=== PATIENT | female | born 1950 | race Caucasian/White ===

== ENCOUNTER 2018-09-29 06:03 | Inpatient (IN) ==
--- NOTE | 2018-09-26 16:03 | MH ---
cc: Bon Castro MD, Rohit K MD Robbins, Rena MD DATE OF ADMISSION: 09/29/2018 ADMITTING DIAGNOSIS: Lumbar spinal stenosis. HISTORY OF PRESENT ILLNESS: This is a 68-year-old female who presented to our office with complaints of low back pain and leg pain which has progressively gotten worse over the last 3-4 years. She also complains of pain radiating into the right buttocks, lateral thigh, and anterior wing. She went on a trip to see her son and grandson in [place] and this exacerbated her pain. She states her pain then also started to go into the left buttocks, lateral thigh, and anterior wing into the top of the left foot. She was found to have multilevel degenerative disk disease at L2-L3, L3-L4, and L4-L5 with significant spinal stenosis at L3-L4 and L4-L5 with disk protrusion and facet hypertrophy as well as left-sided L4-L5 foraminal stenosis. She has a grade 1 L3-L4 and L4-L5 spondylolisthesis she has currently. She states her pain is most severe in the left leg. She states that the right leg is not so bothersome, but she may get occasional pain there. She has been to pain management, and states that when she gets lumbar epidural injections her pain resolves. She states that her last shot was in February, and her pain specialist told her he did not want to do any more injections until she saw neurosurgery. She states that she cannot stand for more than 5 minutes or walk 150 feet. She states that her left leg goes numb in the anterior aspect to the toes. She has undergone several bouts of physical therapy without any lasting relief. PAST MEDICAL HISTORY: Significant for hyperlipidemia, history of breast cancer. She is status post bilateral mastectomy in 2000. She has also undergone hysterectomy in 2012, and she has had two previous C-sections in 1975 and 1978. MEDICATIONS: 1. Morphine 15 mg immediate release. 2. Simvastatin 40 mg. 3. Trazodone 50 mg. 4. Zaleplon 10 mg. ALLERGIES TO MEDICATIONS: SHE IS ALLERGIC TO SULFA. SOCIAL HISTORY: She drinks alcohol daily. She has 2 children. She does not smoke, has not smoked in the past. REVIEW OF SYSTEMS: CONSTITUTIONAL: She denies any fever or chills. EARS, NOSE AND THROAT: No pharyngitis exudate or bloody drainage from her nose. CARDIOVASCULAR: She denies any chest pain or palpitations. RESPIRATORY: No cough or shortness of breath. GENITOURINARY: No dysuria or hematuria. MUSCULOSKELETAL: Positive for low back pain and leg pain. SKIN: No rashes or pruritus. NEUROLOGIC: No difficulty with speech or memory. GASTROINTESTINAL: No nausea, vomiting, abdominal pain. PSYCHIATRIC: No anxiety or depression symptoms. ENDOCRINE: No polyuria. HEMATOLOGIC: No bruising or bleeding tendencies. PHYSICAL EXAMINATION: HEENT: Head is normocephalic, atraumatic. NECK: Supple. No carotid bruits heard on auscultation. LUNGS: Clear to auscultation bilaterally. HEART: Regular rate and rhythm. Normal S1, S2. ABDOMEN: Soft, nontender, positive bowel sounds. SKIN: No cyanosis or erythema. MUSCULOSKELETAL: She has 5/5 strength in the lower extremities. She ambulates without any assistive device. NEUROLOGIC: She is awake, alert, and oriented. Cranial nerves 2-12 are grossly intact. Her speech is fluent. Comprehension is good. Sensation is decreased in the right lateral thigh, medial and lateral calf, otherwise intact in the lower extremities to light touch. Reflexes are 2+ in the lower extremities. IMPRESSION: A 68-year-old female with a chronic history of low back pain with associated bilateral L5 radiculopathy, although more prominent on the left side. She also has neurogenic claudication symptoms with worsening symptoms with activity and walking. She states that her back pain bothers her more than the radicular symptoms. She has failed multiple bouts of physical therapy and interventional pain management. She has previously been seen in 2016 and elected to conservative management at that time. She states that her symptoms have worsened and she relates she is wanted to proceed with surgical intervention. She has had an MRI of the lumbar spine, which shows severe L5-S1 disk degeneration with disk height collapse and endplate changes, which has progressed since her MRI from 2016. She also has moderate to severe L3-L4 and L4-L5 spinal stenosis with [id number] L2-L3 spinal stenosis with advanced degenerative disk disease, which is essentially the same as in 2016. PLAN: We have discussed the procedure of an L3-L5 laminectomy with L5-S1 transforaminal decompression with interbody fusion with cage and pedicle screw fixation. The procedure as well as the risks, benefits, alternatives, and recovery time were explained in great detail with the patient. No guarantees were given as to the results of the surgery. We have discussed the procedure using spine models in the office and all of her questions were answered to her satisfaction. We have discussed the risks involved with surgery that include, but are not limited to bleeding, infection, muscle weakness, voice hoarseness, difficulty swallowing, heart attack, stroke, blood clots, nonfusion, among others. The patient states that she understands the risks, as well as the procedure, and she is requesting that we proceed, and she was therefore scheduled accordingly. MD GEN Callejas/woo , 02:40 PM , 02:52 PM
[2018-09-29] MEDS ORDERED: Sodium Chloride 0.9% 2 ML Flush PRN IV.FLUSH (06:42)
[2018-09-29] MEDS ORDERED: Chlorhexidine Gluconate 2% 1 Pack (2 Cloths) TOPICAL ONE (06:43)
[2018-09-29] MEDS ORDERED: Metoprolol Tartrate 25 MG Tablet PO ONE (06:43)
[2018-09-29] MEDS ORDERED: Bupivacaine/Epinephrine 0.5% Inj 50 ML Vial ONE (06:55)
[2018-09-29] MEDS ORDERED: Gelatin Size 100 Topical Foam ONE ×2 (06:56→08:54)
[2018-09-29] MEDS ORDERED: Thrombin Topical Soln 5,000 UNIT Vial TOPICAL ONE (06:56)
[2018-09-29] MEDS ORDERED: Sodium Chlor 0.9% Inj 500 ML IV.SIG SCH (07:00)
[2018-09-29] MEDS ORDERED: Vancomycin Inj 1,000 MG in Sodium Chlor 0.9% Inj 250 ML IV.SIG SCH (07:00)
[2018-09-29] MEDS: Sod Chloride 0.9% Inj 1,000 ML IV.SIG SCH (08:05)
[2018-09-29] MEDS ORDERED: ALPRAZolam 0.5 MG Tablet PO PRN (13:01)
[2018-09-29] MEDS ORDERED: Calcium Gluconate Inj 1 GM in Sodium Chlor 0.9% Inj 100 ML IV.SIG PRN (13:02)
[2018-09-29] MEDS ORDERED: Magnesium Sulfate Inj 2 GM in Sodium Chlor 0.9% Inj 96 ML IV.SIG PRN (13:02)
[2018-09-29] MEDS ORDERED: Potassium Chlor 20 mEq Premix 20 MEQ/100 ML PIGGYBACK IV.SIG PRN (13:02)
[2018-09-29] MEDS ORDERED: Acetaminophen 325 MG Tablet PO PRN (13:02)
[2018-09-29] MEDS ORDERED: Bisacodyl 10 MG Supp RECTAL PRN (13:02)
[2018-09-29] MEDS ORDERED: Morphine Inj 4 MG/ML Vial IV.PUSH PRN (13:02)
[2018-09-29] MEDS ORDERED: Menthol 5.8 MG Lozenge BUCCAL PRN (13:02)
[2018-09-29] MEDS ORDERED: Aluminum/Magnesium/Simethacone Susp 30 ML UDC PO PRN (13:02)
--- NOTE | 2018-09-29 13:14 | P.OP ---
- Preoperative Diagnosis (1) Chronic low back pain with bilateral sciatica (2) Disc disease, degenerative, lumbar or lumbosacral (3) Lumbar stenosis with neurogenic claudication (4) Lumbar facet arthropathy Date of procedure: 09/29/18 Procedure: L5-S1 transforaminal interbody fusion; L3, L4, L5, S1 decompressive laminectomies with medial facetectomy; L5-S1 pedicle screw fixation; L5-S1 interbody cage placement; microsurgical technique Anesthesia: TRIPP Surgeon: Bon Castro MD Furniture Builder: Flaca Martinez Estimated blood loss (mL): 50 Operation and Findings: The [id number] details of the procedure, indications, alternatives, risks and potential complications were fully discussed with the patient. The patient fully understood. All the questions were answered. No guarantees were given. The patient voiced requesting the procedure and provided informed consents. The patient was offered the alternative of delaying the procedure and continuing with nonsurgical management. Prior to the procedure, the surgical incision was marked in the preoperative surgical holding room, and the procedure, risks, and potential complications revisited with the patient. Placement of electrodes for intraoperative neurophysiological monitoring was completed. The patient was taken to the operative room, and following induction of general anesthesia, endotracheal intubation was performed. A [place] catheter, bilateral GENO hose and sequential compression devices were placed and kept throughout the procedure. The patient was positioned prone, over a Jason table over a Burak frame. All pressure in the preoperative surgical holding room points were carefully padded. The eyes were tapped shut after ointment was applied by the anesthesiologist to prevent corneal abrasion. A Seven hugger was placed over the exposed lower body to maintain control of the core body temperature. The lumbar region was prepped and draped in the usual sterile fashion. Once the patient was positioned, a localizing cross-table lateral x-ray was performed with a C-arm. A midline incision was outlined on the skin. The skin incision made with a #10 blade. Small bleeders were controlled with the cautery. The dissection was then carried out into deeper planes and through the thoracolumbar fascia with a Bovie. Using a subperiosteal plane the muscular attachments to the spinous process lamina were detached at the left L3-L4 and at the L5-S1 levels including the L5-S1 facet. A microsurgical self-retaining retractor was placed on the incision, and a localizing lateralizing cross-table x-ray was performed. Intraoperative microscope magnification used for further dissection. There was significant facet and ligamentum flavum hypertrophy noted. The left L5-S1 medial portion of the facet was resected with a drill bit along with the lamina and there was severe foraminal and lateral recess stenosis from hypertrophied ligamentum flavum and facet which was decompressed. There was severe disc height collapse from the degeneration along with disc protrusion also leading to the foraminal stenosis. Epidural hemostasis was achieved with bipolar cautery and Gelfoam with thrombin. Subsequently entered into the disc space at the L5-S1 level with a #15 blade and aravind were used for discectomy. I then placed PEEK cage packed with local autograft bone and more local autograft bone was packed adjacent to the cage in interspace for added interbody fusion. With placement of the cage, I was able to distract the interspace and opened up the foramen further bilaterally. Subsequently in order to facilitate the fusion and provide stabilization, pedicle screw fixation was undertaken using [place] spine screws on entry point at the right L5 level at the junction of the transverse process and facet in the right S1 through the sacral ala and pedicle into the body. Subsequently using AP and lateral fluoroscopy tap and screw placement. The screws were then connected with a tiffany and locked in place with caps. The construct appeared very secure at this point. The area was then copiously irrigated with Vancomycin solution and powder. I then performed left L3-L4 L4 and L5 laminotomies and to remove the medial portion of the hypertrophied facet and ligamentum flavum which was contributing to significant spinal stenosis at these levels. Right hypertrophied ligamentum flavum and medial facet arthropathy was also resected through the left hemilaminotomy approach with gentle thecal sac retraction for circumferential spinal canal decompression preserving the interspinous and right sided facet ligaments. The retractors were removed and the bipolar cautery used for hemostasis. The muscle fascia was then approximated using 2-0 Vicryl interrupted stitches and then 3-0 Vicryl subcuticular stitches also placed in interrupted fashion. The final skin closure was completed with Mastisol and Steri-Strips. A sterile dressing was then applied. The patient then turned in supine position, extubated and taken to recovery room. There were no intraoperative complications. All sponge and needle counts were correct at the end of procedure. Estimated blood loss about 50 ml.
[2018-09-29] MEDS ORDERED: *morphine SULFATE 4 MG/ML PERIprocedure ONLY ONE ×3 (13:17→16:43)
[2018-09-29 13:21] LABS: Hematocrit 34.1 % (35.0-46.0); Hemoglobin 12.2 gm/dL (11.6-15.3); Mean Corpuscular HGB Conc 35.7 % (32.0-36.0); Mean Corpuscular Hemoglobin 35.1 pg (27.0-34.0); Mean Corpuscular Volume 98.4 fL (80.0-100.0); Mean Platelet Volume 7.2 fL (7.0-11.0); Platelet Count 172 th/mm3 (150-450); Red Blood Count 3.47 mil/mm3 (4.00-5.30); Red Cell Distribution Width 12.7 % (11.6-17.2); White Blood Count 6.5 th/mm3 (4.0-11.0)
[2018-09-29 13:37] LABS: Calcium 8.3 mg/dL (8.5-10.1); Carbon Dioxide 20.2 meq/L (21.0-32.0); Potassium 3.5 meq/L (3.5-5.1)
--- NOTE | 2018-09-29 14:27 | XR ---
EXAM DATE: 09/29/2018 2:17 PM EST AGE/SEX: 68 years / Female INDICATIONS: Post central line placement. CLINICAL DATA: This is the patient's initial encounter. Patient reports that signs and symptoms have been present for 1 day and indicates a pain score of Nonresponsive. MEDICAL/SURGICAL HISTORY: None. None. COMPARISON: [facility], CT CHEST W/O CONTRAST, 03/28/2018. . FINDINGS: Right subclavian central line is in good position. There is no evidence of pneumothorax. Mild bibasil ar infiltrate or atelectasis noted. Cardiac contours are satisfactory. CONCLUSION: Satisfactory Central line positioning. Electronically signed by: Pedro De La O MD 09/29/2018 2:26 PM EST
[2018-09-29] MEDS: ceFAZolin 1 GM Premix Inj 1 GM/50 ML FROZ.PIGGY IV.SIG SCH ×2 (17:46→22:52)
[2018-09-29] MEDS ORDERED: Zolpidem Tartrate 5 MG Tablet PO PRN (21:00)
[2018-09-29] MEDS: Senna/Docusate Sodium 8.6/50 MG Tablet PO SCH (22:53)
[2018-09-29] MEDS: Sodium Chloride 0.9% 2 ML Flush BID IV.FLUSH SCH (23:34)
[2018-09-30] MEDS: Latanoprost 0.005% Opth Drops 2.5 ML Bottle EACH EYE SCH ×2 (01:00→21:46)
[2018-09-30] MEDS: ceFAZolin 1 GM Premix Inj 1 GM/50 ML FROZ.PIGGY IV.SIG SCH (06:31)
[2018-09-30] MEDS: Senna/Docusate Sodium 8.6/50 MG Tablet PO SCH ×2 (08:30→21:44)
[2018-09-30] MEDS: Vitamin B Complex/Vitamin C Tablet PO SCH (08:30)
--- NOTE | 2018-09-30 09:25 | XR ---
EXAM DATE: 09/29/2018 9:20 AM EST AGE/SEX: 68 years / Female INDICATIONS: L3,L4,L5,S1 Laminectomy, L5/S1 fusion. CLINICAL DATA: This is the patient's initial encounter. Patient reports that signs and symptoms have been present for 1 day and indicates a pain score of Nonresponsive. MEDICAL/SURGICAL HISTORY: Non-responsive. Non-responsive. COMPARISON: No prior exams available for comparison. FINDINGS: Examination for level localization demonstrates fusion hardware across the L5-S1 level. The fusion li rdware and spacing material is well-positioned. There are transpedicular screws on the left side. The examination also demonstrates laminectomy extending from L3 3 down to S1. CONCLUSION: Surgical hardware in excellent position. Electronically signed by: Lennox Sams MD 09/30/2018 9:24 AM EST
[2018-09-30] MEDS: Sodium Chloride 0.9% 2 ML Flush BID IV.FLUSH SCH ×2 (10:06→21:45)
[2018-09-30] MEDS: Sod Chloride 0.9% Inj 1,000 ML IV.SIG SCH (10:06)
--- NOTE | 2018-09-30 10:37 | P.PNNS ---
Subjective Interval history: Pt awake and alert sitting up in chair. Complains of incisional pain. No radiculopathy or paresthesias in LEs. She ambulated short distance to bathroom. She states she didn't sleep well last night and Ambien didn't help as well as her usual medication she takes. <Martin Olvera - Last Filed: 09/30/18 10:32> Physical Exam Vital signs: Vital Signs 09/29/18 12:51 09/29/18 13:00 09/29/18 13:15 Temperature 97.8 F Pulse Rate 91 H 86 89 Respiratory Rate 16 12 17 Blood Pressure 141/82 H 138/83 135/80 Pulse Oximetry 95 95 97 09/29/18 13:19 09/29/18 13:30 09/29/18 13:45 Temperature Pulse Rate 87 87 Respiratory Rate 14 13 13 Blood Pressure 120/72 124/71 Pulse Oximetry 95 97 09/29/18 14:00 09/29/18 14:30 09/29/18 15:00 Temperature 97.6 F Pulse Rate 89 90 90 Respiratory Rate 16 12 12 Blood Pressure 124/72 114/67 115/66 Pulse Oximetry 95 95 95 09/29/18 15:30 09/29/18 16:00 09/29/18 16:30 Temperature Pulse Rate 90 90 86 Respiratory Rate 14 12 17 Blood Pressure 118/68 117/64 103/56 L Pulse Oximetry 95 95 95 09/29/18 17:15 09/29/18 20:00 09/30/18 00:00 Temperature 97.2 F L 97.5 F L 98.7 F Pulse Rate 85 92 H 106 H Respiratory Rate 14 20 18 Blood Pressure 137/73 133/65 130/67 Pulse Oximetry 95 96 94 L 09/30/18 04:00 09/30/18 08:00 Temperature 98.2 F 98.6 F Pulse Rate 112 H 99 H Respiratory Rate 18 14 Blood Pressure 111/58 L 143/76 H Pulse Oximetry 95 97 Intake & Output 09/29/18 09/30/18 09/30/18 18:59 06:59 18:59 Intake Total 1300 / 1300 1770 / 1770 Output Total 1150 / 1150 1100 / 1100 Balance 150 / 150 670 / 670 Weight 75.4 kg 77.1 kg Intake: IV 100 / 100 1050 / 1050 NS + KCl 20 mEq Inj 1,000 ML @ 1000 / 1000 100 mls/hr IV.CONT .Q10H [facility] Rx #:[id number] Magnesium Sulfate Inj 2 GM In 100 / 100 NS Inj 96 ML @ 100 mls/hr IV. SIG UNSCH PRN Rx#:[id number] Ancef 1 GM Premix Inj 1 gm In 50 / 50 50 ml @ 200 mls/hr IV.SIG Q8H [facility] Rx#:[id number] Oral 720 / 720 Anesthesia Amount 1200 / 1200 Output: Estimated Blood Loss 50 / 50 Urine Amount (Catheter) 1100 / 1099 1100 / 1100 Indwelling Urethral Catheter 1099 1100 / 1099 Other: Date of Last Bowel Movement 09/29/18 Weight On Admission 73 kg - Constitutional no acute distress - Routine HEENT Exam Eye: Present: PERRL. Absent: conjunctival icterus - Routine Respiratory Exam Present: CTA bilaterally. Absent: respiratory distress, rhonchi, wheezes - Routine Cardiovascular Exam Present: RRR, S1, S2. Absent: murmur - Routine Abdominal Exam Present: soft, normoactive bowel sounds. Absent: distended, firm - Routine Skin Exam Absent: cyanosis, erythema Comments: Bandage changed by RN this morning. - Routine Neurological Exam Present: alert, moving all extremities, normal speech. Absent: motor deficit Sitting up in chair with brace on. - Routine Psychiatric Exam Present: normal affect, cooperative. Absent: anxious, agitated - Urinary Catheter Management Indwelling Urethral Catheter Cath placed during this visit: yes, but has since been removed by the nurse Reason for continuing: Decision to DC catheter Insertion date: 09/29/18 Removal date: 09/30/18 Removal time: 08:30 <Martin Olvera - Last Filed: 09/30/18 10:32> Vital signs: Vital Signs 09/29/18 12:51 09/29/18 13:00 09/29/18 13:15 Temperature 97.8 F Pulse Rate 91 H 86 89 Respiratory Rate 16 12 17 Blood Pressure 141/82 H 138/83 135/80 Pulse Oximetry 95 95 97 09/29/18 13:19 09/29/18 13:30 09/29/18 13:45 Temperature Pulse Rate 87 87 Respiratory Rate 14 13 13 Blood Pressure 120/72 124/71 Pulse Oximetry 95 97 09/29/18 14:00 09/29/18 14:30 09/29/18 15:00 Temperature 97.6 F Pulse Rate 89 90 90 Respiratory Rate 16 12 12 Blood Pressure 124/72 114/67 115/66 Pulse Oximetry 95 95 95 09/29/18 15:30 09/29/18 16:00 09/29/18 16:30 Temperature Pulse Rate 90 90 86 Respiratory Rate 14 12 17 Blood Pressure 118/68 117/64 103/56 L Pulse Oximetry 95 95 95 09/29/18 17:15 09/29/18 20:00 09/30/18 00:00 Temperature 97.2 F L 97.5 F L 98.7 F Pulse Rate 85 92 H 106 H Respiratory Rate 14 20 18 Blood Pressure 137/73 133/65 130/67 Pulse Oximetry 95 96 94 L 09/30/18 04:00 09/30/18 08:00 Temperature 98.2 F 98.6 F Pulse Rate 112 H 99 H Respiratory Rate 18 14 Blood Pressure 111/58 L 143/76 H Pulse Oximetry 95 97 Intake & Output 09/29/18 09/30/18 09/30/18 18:59 06:59 18:59 Intake Total 1300 / 1300 1770 / 1770 Output Total 1150 / 1150 1100 / 1100 Balance 150 / 150 670 / 670 Weight 75.4 kg 77.1 kg Intake: IV 100 / 100 1050 / 1050 NS + KCl 20 mEq Inj 1,000 ML @ 1000 / 1000 100 mls/hr IV.CONT .Q10H [facility] Rx #:[id number] Magnesium Sulfate Inj 2 GM In 100 / 100 NS Inj 96 ML @ 100 mls/hr IV. SIG UNSCH PRN Rx#:[id number] Ancef 1 GM Premix Inj 1 gm In 50 / 50 50 ml @ 200 mls/hr IV.SIG Q8H [facility] Rx#:[id number] Oral 720 / 720 Anesthesia Amount 1200 / 1200 Output: Estimated Blood Loss 50 / 50 Urine Amount (Catheter) 1100 / 1100 1100 / 1100 Indwelling Urethral Catheter 1100 / 1100 1100 / 1100 Other: Date of Last Bowel Movement 09/29/18 Weight On Admission 73 kg - Urinary Catheter Management Indwelling Urethral Catheter Cath placed during this visit: no <Bon Castro - Last Filed: 09/30/18 12:37> Assessment and Plan - Assessment (1) Chronic low back pain with bilateral sciatica Code(s): M54.41 - Lumbago with sciatica, right side; M54.42 - Lumbago with sciatica, left side; G89.29 - Other chronic pain Status: Chronic (2) Disc disease, degenerative, lumbar or lumbosacral Code(s): M51.37 - Other intervertebral disc degeneration, lumbosacral region Status: Chronic (3) Lumbar stenosis with neurogenic claudication Code(s): M48.062 - Spinal stenosis, lumbar region with neurogenic claudication Status: Chronic (4) Lumbar facet arthropathy Code(s): M47.816 - Spondylosis without myelopathy or radiculopathy, lumbar region Status: Chronic - Plan A: 68 y/o FM s/p L5-S1 transforaminal interbody fusion; L3, L4, L5, S1 decompressive laminectomies with medial facetectomy; L5-S1 pedicle screw fixation; L5-S1 interbody cage placement; microsurgical technique on 09/29/18. P: Continue with pain control. Continue with rehab efforts. PT oob with brace on. <Martin Olvera - Last Filed: 09/30/18 10:32> - Attending Attestation The exam, history, and the medical decision-making described in the above note were completed with the assistance of the mid-level provider. I reviewed and agree with the findings presented. I attest that I had a [id number] encounter with the patient on the same day, and personally performed and documented my assessment and findings in the medical record. <Bon Castro - Last Filed: 09/30/18 12:37>
[2018-09-30] MEDS ORDERED: ZALEPLON 10 MG PO SCH (21:00)
[2018-10-01] MEDS: Vitamin B Complex/Vitamin C Tablet PO SCH (10:12)
[2018-10-01] MEDS: Senna/Docusate Sodium 8.6/50 MG Tablet PO SCH ×2 (10:12→20:30)
[2018-10-01] MEDS: Sodium Chloride 0.9% 2 ML Flush BID IV.FLUSH SCH ×3 (13:18→22:04)
--- NOTE | 2018-10-01 17:43 | P.PNNS ---
Subjective Interval history: Pt awake and alert. Complains of incisional pain. She is not taking IV morphine but painful. No radiculopathy or paresthesias in LEs. <Martin Olvera - Last Filed: 10/01/18 17:40> Physical Exam Vital signs: Vital Signs 10/01/18 00:00 10/01/18 04:00 10/01/18 08:00 Temperature 98.2 F 100 F H 97.2 F L Pulse Rate 114 H 111 H 116 H Respiratory Rate 18 20 18 Blood Pressure 110/64 116/64 111/66 Pulse Oximetry 95 94 L 92 L 10/01/18 12:00 10/01/18 13:18 Temperature 100.1 F H Pulse Rate 101 H Respiratory Rate 18 16 Blood Pressure 117/59 L Pulse Oximetry 91 L Intake & Output 09/30/18 10/01/18 10/01/18 18:59 06:59 18:59 Intake Total 480 / 480 960 / 960 Balance 480 / 480 960 / 960 Weight 73.5 kg Intake: Oral 480 / 480 960 / 960 Other: # Voids 3 2 Date of Last Bowel Movement 09/29/18 09/29/18 10/01/18 # Bowel Movements 2 - Constitutional no acute distress, cooperative - Routine HEENT Exam Head: Present: normocephalic Eye: Present: PERRL. Absent: conjunctival icterus - Routine Respiratory Exam Present: CTA bilaterally. Absent: respiratory distress, rhonchi, wheezes - Routine Cardiovascular Exam Present: RRR, S1, S2. Absent: murmur - Routine Abdominal Exam Present: soft, normoactive bowel sounds. Absent: distended, firm - Routine Skin Exam Absent: cyanosis, erythema - Routine Neurological Exam Present: alert, moving all extremities, normal speech. Absent: motor deficit, altered mental status - Routine Psychiatric Exam Present: normal affect, cooperative. Absent: anxious, agitated - Urinary Catheter Management Indwelling Urethral Catheter Cath placed during this visit: yes, but has since been removed by the nurse Reason for continuing: Decision to DC catheter Insertion date: 09/29/18 Removal date: 09/30/18 Removal time: 08:30 <Martin Olvera - Last Filed: 10/01/18 17:40> Vital signs: Vital Signs 10/01/18 12:00 10/01/18 13:18 10/01/18 21:20 Temperature 100.1 F H 99.7 F H Pulse Rate 101 H 106 H Respiratory Rate 18 16 18 Blood Pressure 117/59 L 108/61 Pulse Oximetry 91 L 94 L 10/02/18 00:45 10/02/18 07:15 Temperature 98.8 F 99 F Pulse Rate 104 H 103 H Respiratory Rate 18 16 Blood Pressure 112/67 106/65 Pulse Oximetry 93 L 95 Intake & Output 10/01/18 10/02/18 10/02/18 18:59 06:59 18:59 Intake Total 960 / 960 480 / 480 Balance 960 / 960 480 / 480 Weight 73.5 kg 73.2 kg Intake: Oral 960 / 960 480 / 480 Other: # Voids 2 1 Date of Last Bowel Movement 10/01/18 10/01/18 10/01/19 # Bowel Movements 2 0 - Urinary Catheter Management Indwelling Urethral Catheter Cath placed during this visit: no <Bon Castro - Last Filed: 10/02/18 09:09> Assessment and Plan - Assessment (1) Chronic low back pain with bilateral sciatica Code(s): M54.41 - Lumbago with sciatica, right side; M54.42 - Lumbago with sciatica, left side; G89.29 - Other chronic pain Status: Chronic (2) Disc disease, degenerative, lumbar or lumbosacral Code(s): M51.37 - Other intervertebral disc degeneration, lumbosacral region Status: Chronic (3) Lumbar stenosis with neurogenic claudication Code(s): M48.062 - Spinal stenosis, lumbar region with neurogenic claudication Status: Chronic (4) Lumbar facet arthropathy Code(s): M47.816 - Spondylosis without myelopathy or radiculopathy, lumbar region Status: Chronic - Plan A: 68 y/o FM s/p L5-S1 transforaminal interbody fusion; L3, L4, L5, S1 decompressive laminectomies with medial facetectomy; L5-S1 pedicle screw fixation; L5-S1 interbody cage placement; microsurgical technique on 09/29/18. P: Continue with pain control. Continue with rehab efforts. PT oob with brace on. Home PT Anticipate discharge tomorrow. <Martin Olvera - Last Filed: 10/01/18 17:40> - Attending Attestation The exam, history, and the medical decision-making described in the above note were completed with the assistance of the mid-level provider. I reviewed and agree with the findings presented. I attest that I had a [id number] encounter with the patient on the same day, and personally performed and documented my assessment and findings in the medical record. <Bon Castro - Last Filed: 10/02/18 09:09>
--- NOTE | 2018-10-01 17:48 | P.DCO ---
- Diagnosis (1) Chronic low back pain with bilateral sciatica Status: Chronic (2) Disc disease, degenerative, lumbar or lumbosacral Status: Chronic (3) Lumbar stenosis with neurogenic claudication Status: Chronic (4) Lumbar facet arthropathy Status: Chronic - Physical Therapy Order: Evaluate and treat, Improve ambulation, Strength and gait training - Occupational Therapy Order: Evaluate and treat, Improve ADL - Home Health Nursing Order: Wound care and dressing changes, Nursing assessment with vital signs - Case Management Consult Case Management Consult-Home Health: Yes - Certification I have seen patient Alisa Araujo on 10/01/18. My clinical findings support the need for the requested home health care services because: Limited mobility due to disease progression, Deconditioned with increased weakness, High risk of falls I certify that my clinical findings support that this patient is homebound because: Post-op weakness, Unsteady gait/balance, Unable to use public transportation
[2018-10-01] MEDS: Latanoprost 0.005% Opth Drops 2.5 ML Bottle EACH EYE SCH (20:31)
[2018-10-01] MEDS: Methocarbamol 500 MG Tablet PO SCH (21:36)
[2018-10-02] MEDS: Methocarbamol 500 MG Tablet PO SCH (06:10)
[2018-10-02] MEDS: Vitamin B Complex/Vitamin C Tablet PO SCH ×2 (07:37→09:54)
--- NOTE | 2018-10-02 09:32 | P.PNNS ---
Subjective Interval history: Pt awake and alert. Incisional pain controlled with pain medication and muscle relaxant. No radiculopathy or paresthesias in LEs. Pt ambulated halls. Had BM yesterday. Physical Exam Vital signs: Vital Signs 10/01/18 12:00 10/01/18 13:18 10/01/18 21:20 Temperature 100.1 F H 99.7 F H Pulse Rate 101 H 106 H Respiratory Rate 18 16 18 Blood Pressure 117/59 L 108/61 Pulse Oximetry 91 L 94 L 10/02/18 00:45 10/02/18 07:15 Temperature 98.8 F 99 F Pulse Rate 104 H 103 H Respiratory Rate 18 16 Blood Pressure 112/67 106/65 Pulse Oximetry 93 L 95 Intake & Output 10/01/18 10/02/18 10/02/18 18:59 06:59 18:59 Intake Total 960 / 960 480 / 480 Balance 960 / 960 480 / 480 Weight 73.5 kg 73.2 kg Intake: Oral 960 / 960 480 / 480 Other: # Voids 2 1 Date of Last Bowel Movement 10/01/18 10/01/18 10/01/19 # Bowel Movements 2 0 - Constitutional no acute distress - Routine HEENT Exam Head: Present: normocephalic Eye: Present: PERRL - Routine Neck Exam Present: trachea midline - Routine Respiratory Exam Present: CTA bilaterally, respiratory distress. Absent: rhonchi, wheezes - Routine Cardiovascular Exam Present: RRR, S1, S2. Absent: murmur - Routine Abdominal Exam Present: soft, normoactive bowel sounds. Absent: distended, firm - Routine Skin Exam Absent: cyanosis, erythema - Routine Neurological Exam Present: alert, moving all extremities, normal speech. Absent: motor deficit, altered mental status - Routine Psychiatric Exam Present: normal affect, cooperative. Absent: anxious, agitated - Urinary Catheter Management Indwelling Urethral Catheter Cath placed during this visit: yes, but has since been removed by the nurse Reason for continuing: Decision to DC catheter Insertion date: 09/29/18 Removal date: 09/30/18 Removal time: 08:30 Assessment and Plan - Assessment (1) Chronic low back pain with bilateral sciatica Code(s): M54.41 - Lumbago with sciatica, right side; M54.42 - Lumbago with sciatica, left side; G89.29 - Other chronic pain Status: Chronic (2) Disc disease, degenerative, lumbar or lumbosacral Code(s): M51.37 - Other intervertebral disc degeneration, lumbosacral region Status: Chronic (3) Lumbar stenosis with neurogenic claudication Code(s): M48.062 - Spinal stenosis, lumbar region with neurogenic claudication Status: Chronic (4) Lumbar facet arthropathy Code(s): M47.816 - Spondylosis without myelopathy or radiculopathy, lumbar region Status: Chronic - Plan A: 68 y/o FM s/p L5-S1 transforaminal interbody fusion; L3, L4, L5, S1 decompressive laminectomies with medial facetectomy; L5-S1 pedicle screw fixation; L5-S1 interbody cage placement; microsurgical technique on 09/29/18. P: Continue with pain control. Continue with rehab efforts. PT oob with brace on. Home PT Discharge pt home.
[2018-10-02] MEDS: Senna/Docusate Sodium 8.6/50 MG Tablet PO SCH (09:54)
[2018-10-02] MEDS: Sodium Chloride 0.9% 2 ML Flush BID IV.FLUSH SCH (09:54)
[2018-10-02 11:50] VITALS: BP 115/60; PULSE 93; RESP 18; TEMP 98.3; O2SAT 93
== END 2018-10-02 14:14 | disposition home health service (06) ==
LOC: HSDI 06:03 → N06 17:14
PROVIDERS: ADMIT Neurological Surgery; ATTEND Neurological Surgery